=== PATIENT | male | born 1940 | race African-American/Black ===

== ENCOUNTER 2017-08-27 22:14 | Inpatient (IN) | payer MEDICARE, MEDICAID ==
[~2017-08-27] VITALS: Ht 180.3 cm; Wt 93.0 kg
[~2017-08-27 22:14] MED LIST: AMLO10TA80 PO; HYDR12.529 PO; LORA10TA7 PO; LOSA100T14 PO; NASOI BOTHNSTRLS; OMEP20CA10 PO; SIMV20TA6 PO
[2017-08-28] MEDS ORDERED: NITROGLYCERIN OINT 1GM/INCH UDPKT TD STA (01:02)
[2017-08-28] MEDS ORDERED: ENALAPRIL 2.5MG/2ML VIAL 2ML IV STA (01:02)
[2017-08-28] MEDS ORDERED: ASPIRIN 325MG TABLET PO ONE (01:15)
[2017-08-28 01:32] LABS: EOSINOPHILS % 2.9 % (0.0-5.0); HEMATOCRIT. 42.3 % (42.0-52.0); HEMOGLOBIN. 14.8 g/dL (14.0-18.0); LYMPHOCYTES % 37.8 % (20.0-50.0); MEAN CORPUSCULAR HEMOGLOBIN 27.6 pg (28.0-32.0); MEAN CORPUSCULAR VOLUME 78.8 fL (80.0-94.0); MEAN PLATELET VOLUME 10.1 fl (7.4-10.4); MONOCYTES % 10.7 % (2.0-8.0); NEUTROPHILS % 47.6 % (40.0-76.0); PLATELET 154 x1000/uL (130-400); RED BLOOD CELL COUNT 5.37 mill/uL (4.7-6.1); RED CELL DISTRIBUTION WIDTH 13.8 % (11.6-14.6)
[2017-08-28 01:36] LABS: CARBON DIOXIDE 25 mEq/L (21-32); CHLORIDE 106 mEq/L (98-107); TROPONIN I < 0.02 ng/mL (0.00-0.04)
[2017-08-28] MEDS ORDERED: ACETAMINOPHEN 325MG TABLET PO PRN (03:30)
[2017-08-28] MEDS ORDERED: CLONIDINE 0.1MG TABLET PO PRN (03:30)
[2017-08-28] MEDS: SODIUM CHLORIDE 0.9% INJ 3ML FLUSH IVF SCH ×3 (06:00→21:41)
[2017-08-28 06:12] LABS: HDL CHOLESTEROL 46 mg/dL (40-59); LDL CHOLESTEROL 53 mg/dL (5-100); TROPONIN I < 0.02 ng/mL (0.00-0.04)
[2017-08-28 07:15] LABS: VITAMIN B12 SERUM 755 pg/mL (211-911)
[2017-08-28] MEDS: OMEPRAZOLE 20MG CAPSULE EXTENDED RELEASE PO SCH (09:00)
[2017-08-28] MEDS ORDERED: AMLODIPINE 10MG TABLET PO SCH (09:00)
[2017-08-28] MEDS ORDERED: HYDROCHLOROTHIAZIDE 12.5MG CAPSULE PO SCH (09:00)
[2017-08-28] MEDS: LORATADINE 10MG TABLET PO SCH (09:29)
[2017-08-28] MEDS: ENOXAPARIN 40MG/0.4ML SYR SUBCUT SCH (09:30)
[2017-08-28] MEDS: LOSARTAN POTASSIUM 100 MG TABLET PO SCH (09:40)
[2017-08-28 10:42] VITALS: BP 156/60
[2017-08-28] MEDS ORDERED: DEXTROSE 50% WATER 50ML SYRINGE IV PRN (11:30)
[2017-08-28 12:00] VITALS: BP 124/61
[2017-08-28] MEDS: BLOOD SUGAR DIAGNOSTIC STRIP TEST SCH ×3 (12:05→21:44)
[2017-08-28] MEDS ORDERED: ALPRAZOLAM 0.25 MG TABLET PO PRN (14:30)
[2017-08-28] MEDS ORDERED: ALPRAZOLAM 0.25 MG TABLET PO SCH (14:30)
[2017-08-28] MEDS: NITROGLYCERIN OINT 1GM/INCH UDPKT TD SCH ×2 (15:32→21:43)
[2017-08-28 16:00] VITALS: BP 130/71
[2017-08-28] MEDS: AMLODIPINE 10MG TABLET PO SCH (17:46)
[2017-08-28 20:00] VITALS: BP 117/64
[2017-08-28] MEDS ORDERED: ATORVASTATIN CALCIUM 20MG TABLET PO SCH (21:00)
[2017-08-28] MEDS ORDERED: TEMAZEPAM 15MG CAPSULE PO PRN (21:00)
[2017-08-28] MEDS ORDERED: LATANOPROST 0.005% OPHTH DROPS 2.5ML BOTHEYE SCH (21:00)
[2017-08-28] MEDS ORDERED: TAMSULOSIN HCL 0.4MG SR CAPSULE PO SCH (21:00)
[2017-08-29] VITALS: BP 119/53
[2017-08-29 04:00] VITALS: BP 138/66
[2017-08-29] MEDS ORDERED: ALPRAZOLAM 0.25 MG TABLET PO SCH (06:00)
[2017-08-29] MEDS ORDERED: REGADENOSON 0.4 MG/5 ML IV NR (06:00)
[2017-08-29] MEDS: OMEPRAZOLE 20MG CAPSULE EXTENDED RELEASE PO SCH (06:25)
[2017-08-29] MEDS: NITROGLYCERIN OINT 1GM/INCH UDPKT TD SCH ×2 (06:26→14:09)
[2017-08-29] MEDS: SODIUM CHLORIDE 0.9% INJ 3ML FLUSH IVF SCH ×2 (06:27→14:09)
[2017-08-29] MEDS: BLOOD SUGAR DIAGNOSTIC STRIP TEST SCH ×2 (06:30→12:00)
[2017-08-29 07:03] LABS: BASOPHILS % 0.7 % (0.0-2.0); EOSINOPHILS % 3.7 % (0.0-5.0); HEMATOCRIT. 42.8 % (42.0-52.0); HEMOGLOBIN. 14.8 g/dL (14.0-18.0); MEAN CORPUSCULAR HEMOGLOBIN 27.3 pg (28.0-32.0); MEAN CORPUSCULAR VOLUME 79.2 fL (80.0-94.0); MEAN PLATELET VOLUME 10.6 fl (7.4-10.4); MONOCYTES % 10.7 % (2.0-8.0); NEUTROPHILS % 44.9 % (40.0-76.0); PLATELET 161 x1000/uL (130-400); RED CELL DISTRIBUTION WIDTH 14.1 % (11.6-14.6)
[2017-08-29 08:00] VITALS: BP 141/71
[2017-08-29] MEDS ORDERED: ASPIRIN 81MG TABLET PO SCH (09:00)
[2017-08-29] MEDS ORDERED: REGADENOSON 0.4 MG/5 ML IV ONE (09:38)
[2017-08-29 10:15] LABS: CARBON DIOXIDE 26 mEq/L (21-32); CHLORIDE 105 mEq/L (98-107); TROPONIN I < 0.02 ng/mL (0.00-0.04)
[2017-08-29] MEDS: ENOXAPARIN 40MG/0.4ML SYR SUBCUT SCH (11:00)
[2017-08-29] MEDS: LORATADINE 10MG TABLET PO SCH (11:01)
[2017-08-29] MEDS: LOSARTAN POTASSIUM 100 MG TABLET PO SCH (11:01)
[2017-08-29] MEDS: AMLODIPINE 10MG TABLET PO SCH (11:01)
[2017-08-29 12:00] VITALS: BP 113/77
[2017-08-29 16:00] VITALS: BP 129/65
[2017-08-29 16:39] VITALS: BP 129/65
== END 2017-08-29 17:10 | disposition home or self-care (01) | DRG 392 ==
LOC: ER 22:14 → 8WST 08-28 02:58 → EDBEDREQ 08-28 03:15 → EDBEDREQTM 08-28 03:15 → ENRESERV 08-28 07:10 → 8WST 08-28 20:26
PROVIDERS: ADMIT Ophthalmology; ATTEND Ophthalmology
DX: K21.9 Gastro-esophageal reflux disease without esophagitis (principal); E11.9 Type 2 diabetes mellitus without complications; I11.9 Hypertensive heart disease without heart failure; B19.20 Unspecified viral hepatitis C without hepatic coma; E78.5 Hyperlipidemia, unspecified; E78.00 Pure hypercholesterolemia, unspecified; N40.0 Benign prostatic hyperplasia without lower urinary tract symptoms; Z82.49 Family history of ischemic heart disease and other diseases of the circulatory system; Z86.010 Personal history of colon polyps; Z83.3 Family history of diabetes mellitus; Z88.0 Allergy status to penicillin; Z79.899 Other long term (current) drug therapy; Z90.49 Acquired absence of other specified parts of digestive tract; Z82.0 Family history of epilepsy and other diseases of the nervous system
CPT/HCPCS: 36415; 71010; 78452; 80048; 80053; 80061; 82607; 82962; 83036; 83880; 84484; 85025; 85379; 93005; 93017; 93306; 96374; 99285; A9500; J1650; J2785; J3490

== ENCOUNTER 2019-01-07 10:30 | Inpatient (IN) | payer MEDICARE, MEDICAID ==
[~2019-01-07] VITALS: Ht 177.8 cm; Wt 78.0 kg
[~2019-01-07 10:30] MED LIST changes: -LOSA100T14 PO; -OMEP20CA10 PO
[2019-01-07] MEDS ORDERED: LEVOFLOXACIN 750MG PREMIX 150 ML IV ONE (16:15)
[2019-01-07] MEDS ORDERED: SODIUM CHLORIDE 0.9% 1000ML BAG (SEPSIS BOLUS) IV ONE (16:15)
[2019-01-07] MEDS ORDERED: ACETAMINOPHEN 325MG TABLET PO ONE (16:30)
[2019-01-07] MEDS ORDERED: OSELTAMIVIR 75MG CAPSULE PO ONE (17:00)
[2019-01-07 17:27] LABS: BASOPHILS % 0.5 % (0.0-2.0); EOSINOPHILS % 0.1 % (0.0-5.0); HEMATOCRIT. 45.8 % (42.0-52.0); HEMOGLOBIN. 15.5 g/dL (14.0-18.0); LYMPHOCYTES % 7.7 % (20.0-50.0); MEAN CORPUSCULAR HEMOGLOBIN 27.1 pg (28.0-32.0); MEAN CORPUSCULAR VOLUME 80.3 fL (80.0-94.0); MEAN PLATELET VOLUME 9.7 fl (7.4-10.4); MONOCYTES % 14.3 % (2.0-8.0); NEUTROPHILS % 77.4 % (40.0-76.0); PLATELET 187 x1000/uL (130-400); RED CELL DISTRIBUTION WIDTH 13.9 % (11.6-14.6)
[2019-01-07 17:30] LABS: CHLORIDE 100 mEq/L (98-107)
[2019-01-07 17:32] LABS: PARTIAL THROMBOPLASTIN TIME 27.7 sec (23.4-31.0); PROTHROMBIN TIME 10.1 sec (9.1-11.1)
[2019-01-08] MEDS ORDERED: LATANOPROST 0.005% OPHTH DROPS 2.5ML EACHEYE SCH
[2019-01-08 08:00] VITALS: BP 174/94
[2019-01-08 10:30] VITALS: BP 161/77
[2019-01-08] MEDS ORDERED: NA PHOS,M-B/NA PHOS,DI-BA ENEMA 118ML PR PRN (10:45)
[2019-01-08] MEDS ORDERED: DEXTROSE 50% WATER 50ML SYRINGE IV PRN (10:45)
[2019-01-08] MEDS ORDERED: MAGNESIUM/ALUMINUM HYDROXIDE/SIMETHICONE 30ML UDC PO PRN (10:45)
[2019-01-08] MEDS ORDERED: IPRATROPIUM/ALBUTEROL 0.5-3(2.5)MG/3ML NEB INH PRN (10:45)
[2019-01-08] MEDS ORDERED: ACETAMINOPHEN 325MG TABLET PO PRN (10:45)
[2019-01-08] MEDS ORDERED: DOCUSATE SODIUM 100MG CAPSULE PO PRN (10:45)
[2019-01-08] MEDS ORDERED: LORAZEPAM 0.5MG TABLET PO PRN (10:45)
[2019-01-08] MEDS ORDERED: DIPHENHYDRAMINE 50MG/ML VIAL IV PRN (10:45)
[2019-01-08] MEDS ORDERED: ACETAMINOPHEN 650MG SUPP PR PRN (10:45)
[2019-01-08] MEDS ORDERED: GUAIFENESIN 200MG/10ML SUGAR FREE UDC PO PRN (10:45)
[2019-01-08] MEDS ORDERED: SODIUM CHLORIDE 0.45% 1,000 ML IV SCH (10:45)
[2019-01-08] MEDS ORDERED: HYDROCODONE/ACETAMINOPHEN 5/325MG TABLET PO PRN (10:45)
[2019-01-08] MEDS ORDERED: CLONIDINE 0.1MG TABLET PO PRN (10:45)
[2019-01-08] MEDS ORDERED: ONDANSETRON HCL 4MG/2ML INJ IV PRN (10:45)
[2019-01-08 12:00] VITALS: BP_SYST 154; BP_SYST 159; BP_SYST 167; BP_DIAS 66; BP_DIAS 77; BP_DIAS 92
[2019-01-08] MEDS ORDERED: OSELTAMIVIR 30MG CAPSULE PO SCH (12:00)
[2019-01-08] MEDS ORDERED: ACETAMINOPHEN WITH CODEINE 300/30MG TABLET PO PRN (12:00)
[2019-01-08] MEDS ORDERED: OSELTAMIVIR 75MG CAPSULE PO SCH ×2 (12:00→21:00)
[2019-01-08] MEDS ORDERED: AMLODIPINE 10MG TABLET PO SCH (12:00)
[2019-01-08] MEDS: INSULIN LISPRO 100 UNITS/ML SUBCUT SCH ×2 (12:15→17:15)
[2019-01-08] MEDS: BLOOD SUGAR DIAGNOSTIC STRIP TEST SCH ×2 (12:21→17:46)
[2019-01-08 12:38] LABS: HEMATOCRIT 43.1 % (42.0-52.0); HEMOGLOBIN 14.5 g/dL (14.0-18.0); MEAN CORPUSCULAR HEMOGLOBIN 26.8 pg (28.0-32.0); MEAN CORPUSCULAR VOLUME 79.9 fL (80.0-94.0); PLATELET 175 x1000/uL (130-400); RED BLOOD CELL COUNT 5.39 mill/uL (4.7-6.1)
[2019-01-08 12:47] LABS: CHLORIDE 102 mEq/L (98-107)
[2019-01-08] MEDS ORDERED: LOSA100T14 PO (14:36)
[2019-01-08 16:00] VITALS: BP 149/68
[2019-01-08] MEDS ORDERED: PNEUMOCOCCAL 23-VAL P-SAC VAC 0.5 ML IM ONE (16:15)
[2019-01-08] MEDS ORDERED: LOSARTAN POTASSIUM 25 MG TABLET PO NR (16:15)
[2019-01-08 17:57] VITALS: BP 149/69
[2019-01-08] MEDS ORDERED: ENOXAPARIN 40MG/0.4ML SYR SUBCUT SCH (18:00)
[2019-01-08] MEDS ORDERED: ATORVASTATIN CALCIUM 10MG TABLET PO SCH (21:00)
[2019-01-08] MEDS ORDERED: MEDICATION NOT ON FORMULARY EA (Simvastatin 20 MG) PO SCH (21:00)
[2019-01-09] MEDS ORDERED: PANTOPRAZOLE 40MG DR TABLET PO SCH (06:45)
[2019-01-09] MEDS ORDERED: LORATADINE 10MG TABLET PO SCH (09:00)
== END 2019-01-08 17:00 | disposition home or self-care (01) | DRG 194 ==
LOC: ER 10:30 → 5WST 18:49 → ENRESERV 01-08 07:22
PROVIDERS: ADMIT Internal Medicine; ATTEND Internal Medicine
DX: J10.1 Influenza due to other identified influenza virus with other respiratory manifestations (principal); E87.2 Acidosis; E11.65 Type 2 diabetes mellitus with hyperglycemia; E78.00 Pure hypercholesterolemia, unspecified; E78.5 Hyperlipidemia, unspecified; R74.0 Nonspecific elevation of levels of transaminase and lactic acid dehydrogenase [LDH]; H40.9 Unspecified glaucoma; I10 Essential (primary) hypertension; M89.9 Disorder of bone, unspecified; Z88.0 Allergy status to penicillin; Z90.49 Acquired absence of other specified parts of digestive tract; Z79.84 Long term (current) use of oral hypoglycemic drugs
CPT/HCPCS: 36415; 71045; 82962; 83036; 83605; 84145; 84484; 85027; 87804; 93005; 93970; 96365; 96366; 99291; J1956; J7030

== ENCOUNTER 2019-07-29 07:59 | Emergency (ER) | payer MEDICARE, MEDICAID ==
[~2019-07-29] VITALS: Ht 175.3 cm; Wt 86.0 kg
[~2019-07-29 07:59] MED LIST changes: +LOSA100T32 PO
[2019-07-29 08:57] LABS: BASOPHILS % 0.4 % (0.0-2.0); EOSINOPHILS % 1.1 % (0.0-5.0); HEMATOCRIT. 39.2 % (42.0-52.0); HEMOGLOBIN. 13.1 g/dL (14.0-18.0); LYMPHOCYTES % 19.9 % (20.0-50.0); MEAN CORPUSCULAR HEMOGLOBIN 26.9 pg (28.0-32.0); MEAN CORPUSCULAR VOLUME 80.1 fL (80.0-94.0); MEAN PLATELET VOLUME 9.7 fl (7.4-10.4); MONOCYTES % 13.2 % (2.0-8.0); NEUTROPHILS % 65.4 % (40.0-76.0); PLATELET 230 x1000/uL (130-400); RED BLOOD CELL COUNT 4.89 mill/uL (4.7-6.1); RED CELL DISTRIBUTION WIDTH 14.3 % (11.6-14.6)
[2019-07-29 09:01] LABS: CHLORIDE 104 mEq/L (98-107)
[2019-07-29 09:45] VITALS: BP 153/62
== END 2019-07-29 10:00 | disposition home or self-care (01) ==
LOC: ER 07:59
DX: J20.8 Acute bronchitis due to other specified organisms (principal); E11.9 Type 2 diabetes mellitus without complications; E78.00 Pure hypercholesterolemia, unspecified; I10 Essential (primary) hypertension; Z85.05 Personal history of malignant neoplasm of liver; Z90.49 Acquired absence of other specified parts of digestive tract; Z98.1 Arthrodesis status; Z88.0 Allergy status to penicillin
CPT/HCPCS: 36415; 71045; 99284